=== PATIENT | female | born 1980 | race Caucasian/White ===

== ENCOUNTER 2020-02-23 14:38 | Emergency (ER) | payer OTHER ==
[2020-02-23 14:44] VITALS: RESP 18; TEMP 98.3
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
[2020-02-23] MEDS ORDERED: ACET/COD 300 MG/30 MG STARTER PACK 6 TAB BTL PO STA (16:45)
[2020-02-23] MEDS ORDERED: CEPHALEXIN 500MG STARTER PACK 4 CAP BTL PO STA (16:46)
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
[2020-02-23 16:52] VITALS: BP 134/68; PULSE 74
== END 2020-02-23 16:50 | disposition home or self-care (01) ==
LOC: EC 14:38
DX: S02.2XXA Fracture of nasal bones, initial encounter for closed fracture (principal); F17.200 Nicotine dependence, unspecified, uncomplicated; Z91.013 Allergy to seafood; W22.8XXA Striking against or struck by other objects, initial encounter
CPT/HCPCS: 70450; 70486; 99284

== ENCOUNTER 2020-05-28 16:01 | Emergency (ER) | payer OTHER ==
[2020-05-28 16:11] VITALS: BP 127/72; PULSE 71; RESP 18; TEMP 98.3
[2020-05-28] MEDS ORDERED: ACET/COD 300 MG/30 MG STARTER PACK 6 TAB BTL PO STA (16:20)
[2020-05-28] MEDS ORDERED: PENICILLIN VK 500MG STARTER 4 TAB BTL PO STA (16:20)
[2020-05-28] MEDS ORDERED: IBUPROFEN 600 MG TAB PO STA (16:21)
--- NOTE | 2020-05-28 16:22 | ED ---
General Adult HPI - General Chief complaint: Dental/Oral Stated complaint: Dental Pain Time Seen by Provider: 05/28/20 16:08 Source: patient, RN notes reviewed Mode of arrival: ambulatory Limitations: no limitations - History of Present Illness Initial comments: 40-year-old female presents to the emergency department for a chief complaint of dental pain. Patient reports she has had dental pain for the past 4 days. States she could not get into her dentist. Patient is concerned she may now have an abscess as she has a bump under her tooth. She denies trismus or neck stiffness. Denies fevers or chills.Patient has no other complaints at this time including shortness of breath, chest pain, abdominal pain, nausea or vomiting, headache, or visual changes. - Related Data Previous Rx's Medication Instructions Recorded Cephalexin [Keflex] 500 mg PO Q12HR 10 Days cap 02/23/20 Cephalexin [Keflex] 500 mg PO Q12HR 10 Days #20 cap 02/23/20 Penicillin V Potassium [Pen Vee K] 500 mg PO Q6H 10 Days #40 tablet 05/28/20 Allergies Allergy/AdvReac Type Severity Reaction Status Date / Time shellfish derived [Shellfish] Allergy Rash/Hives Verified 05/28/20 16:11 Review of Systems ROS Statement: Those systems with pertinent positive or pertinent negative responses have been documented in the HPI. ROS Other: All systems not noted in ROS Statement are negative. Past Medical History Past Medical History: No Reported History Additional Past Medical History / Comment(s): Tooth abscess. History of Any Multi-Drug Resistant Organisms: None Reported Past Surgical History: No Surgical Hx Reported Past Psychological History: No Psychological Hx Reported Smoking Status: Former smoker Past Alcohol Use History: None Reported, Occasional Past Drug Use History: Marijuana General Exam Limitations: no limitations General appearance: alert, in no apparent distress Head exam: Present: atraumatic, normocephalic, normal inspection Eye exam: Present: normal appearance, PERRL, EOMI. Absent: scleral icterus, conjunctival injection, periorbital swelling ENT exam: Present: mucous membranes moist, normal external ear exam. Absent: normal oropharynx (patient has a small area of edema noted below tooth 19 with tenderness to this area. No sublingual edema. No trismus.) Neck exam: Present: normal inspection, full ROM. Absent: tenderness, meningismus, lymphadenopathy Respiratory exam: Present: normal lung sounds bilaterally. Absent: respiratory distress, wheezes, rales, rhonchi, stridor Cardiovascular Exam: Present: regular rate, normal rhythm, normal heart sounds. Absent: systolic murmur, diastolic murmur, rubs, gallop, clicks Course Vital Signs 05/28/20 16:05 Temperature 98.3 F Pulse Rate 71 Respiratory 18 Rate Blood Pressure 127/72 O2 Sat by Pulse 100 Oximetry Medical Decision Making - Medical Decision Making I did attempt to incise and drain area of edema under the tooth however there is no purulent drainage. This is likely reactive inflammation. Patient was started on penicillin. Discussed she return to the emergency room for any worsening symptoms and otherwise follow-up with her doctor. Disposition Clinical Impression: Pain, dental Disposition: HOME SELF-CARE Condition: Good Instructions (If sedation given, give patient instructions): Dental Abscess (ED) Additional Instructions: please take Motrin for pain. If pain is severe take Tylenol [address] operate machinery while taking this. Take penicillin as directed. Prescription was also sent to the pharmacy.follow-up with your dentist as soon as possible. If you have any worsening symptoms return to the emergency room. Prescriptions: Penicillin V Potassium [Pen Vee K] 500 mg PO Q6H 10 Days #40 tablet Is patient prescribed a controlled substance at d/c from ED?: No Referrals: Kati Hair MD [REFERRING] - 1-2 days Time of Disposition: 16:21
== END 2020-05-28 16:53 | disposition home or self-care (01) ==
LOC: EC 16:01
DX: K08.89 Other specified disorders of teeth and supporting structures (principal); R60.0 Localized edema; Z91.013 Allergy to seafood; Z87.891 Personal history of nicotine dependence
CPT/HCPCS: 99282

== ENCOUNTER 2021-03-06 19:21 | Emergency (ER) | payer OTHER ==
[2021-03-06 19:52] VITALS: RESP 18; TEMP 98.5
--- NOTE | 2021-03-06 20:20 | ED ---
URI HPI - General Chief Complaint: Upper Respiratory Infection Stated Complaint: SOB,cough Time Seen by Provider: 03/06/21 20:03 Source: patient Mode of arrival: ambulatory Limitations: no limitations - History of Present Illness Initial Comments: Patient is a 40-year-old female, with history of mild asthma, presenting to the emergency Department with complaints of a cough that just started this morning. Patient states she just returned from [facility] yesterday. She states she woke up with chest congestion cough and body aches. She denies having any fevers but does have chills. She denies any nausea or vomiting, no diarrhea. She denies any chest pain or shortness of breath. She states her cough is nonproductive. She denies having that Covid vaccine. She states that she is having to travel for work tomorrow and wants to make sure she does not have Covid. She has no further complaints at this time. Her vital signs are stable upon arrival. - Related Data Previous Rx's Medication Instructions Recorded Cephalexin [Keflex] 500 mg PO Q12HR 10 Days cap 02/23/20 Cephalexin [Keflex] 500 mg PO Q12HR 10 Days #20 cap 02/23/20 Penicillin V Potassium [Pen Vee K] 500 mg PO Q6H 10 Days #40 tablet 05/28/20 Allergies Allergy/AdvReac Type Severity Reaction Status Date / Time shellfish derived [Shellfish] Allergy Rash/Hives Verified 03/06/21 19:48 Review of Systems ROS Statement: Those systems with pertinent positive or pertinent negative responses have been documented in the HPI. ROS Other: All systems not noted in ROS Statement are negative. Past Medical History Past Medical History: Asthma Additional Past Medical History / Comment(s): Tooth abscess. History of Any Multi-Drug Resistant Organisms: None Reported Past Surgical History: Section, Cholecystectomy, Orthopedic Surgery Past Psychological History: No Psychological Hx Reported Smoking Status: Former smoker Past Alcohol Use History: None Reported, Occasional Past Drug Use History: Marijuana General Exam - General Exam Comments Initial Comments: GENERAL: Patient is well-developed and well-nourished. Patient is nontoxic and in no acute distress. HEAD: Atraumatic, normocephalic. EYES: Pupils equal round and reactive to light, extraocular movements intact, sclera anicteric, conjunctiva are normal. Eyelids were unremarkable. ENT: TMs normal, nares patent, oropharynx clear without exudates. Moist mucous membranes. NECK: Normal range of motion, supple without lymphadenopathy or JVD. LUNGS: Unlabored respirations. Breath sounds clear to auscultation bilaterally and equal. No wheezes rales or rhonchi. HEART: Regular rate and rhythm without murmurs, rubs or gallops. ABDOMEN: Soft, nontender, normoactive bowel sounds. No guarding, no rebound. No masses appreciated. : Deferred MUSCULOSKELETAL: Normal extremities with adequate strength and normal range of motion, no pitting or edema. No clubbing or cyanosis. NEUROLOGICAL: Patient is alert and oriented x 3. Motor and sensory are also intact. Cranial nerves II through XII grossly intact. Symmetrical smile. Normal speech, normal gait. PSYCH: Normal mood, normal affect. SKIN: Warm, Dry, normal turgor, no rashes or lesions noted. Limitations: no limitations Course Vital Signs 03/06/21 03/06/21 03/06/21 19:49 20:18 20:52 Temperature 98.5 F Pulse Rate 71 80 Respiratory 18 18 18 Rate Blood Pressure 98/65 109/74 O2 Sat by Pulse 100 100 Oximetry Medical Decision Making - Medical Decision Making Patient is a 40-year-old female here with cough and congestion that started this morning. She just returned from [facility], no fevers, her vital signs are stable. Patient is traveling for work tomorrow wants to make sure she does not have Covid. Her exam is unremarkable, lungs are clear. Rapid Covid is negative, chest x-ray is clear. I discussed with patient that her symptoms also likely a mild upper respiratory infection. Recommended Tylenol Motrin, cough and cold medicine [id number]. She is stable for discharge and she is in agreement with this plan of care. Case discussed Dr. Hudson. - Lab Data Lab Results 03/06/21 Range/Units 20:13 Coronavirus (PCR) Not Detected (Not Detectd) Disposition Clinical Impression: Upper respiratory tract infection Disposition: HOME SELF-CARE Condition: Stable Instructions (If sedation given, give patient instructions): Upper Respiratory Infection (ED) Additional Instructions: Please return to the Emergency Department if symptoms worsen or any other concerns. Your Covid test is negative today. Take [id number] medications for your symptoms. Is patient prescribed a controlled substance at d/c from ED?: No Referrals: None,Stated [Primary Care Provider] - 1-2 days Time of Disposition: 21:19
--- NOTE | 2021-03-06 20:54 | XR ---
EXAMINATION TYPE: XR chest 2V DATE OF EXAM: 03/06/2021 COMPARISON: NONE HISTORY: Short of breath and cough TECHNIQUE: 2 view FINDINGS: Heart and mediastinum are normal. Lungs are clear. Diaphragm is normal. Bony thorax is inta ct IMPRESSION: Normal chest. Normal heart.
[2021-03-06 21:19] VITALS: BP 109/74; PULSE 80
== END 2021-03-06 21:29 | disposition home or self-care (01) ==
LOC: EC 19:21
DX: J06.9 Acute upper respiratory infection, unspecified (principal); J45.909 Unspecified asthma, uncomplicated; F12.90 Cannabis use, unspecified, uncomplicated; Z87.891 Personal history of nicotine dependence; Z90.49 Acquired absence of other specified parts of digestive tract
CPT/HCPCS: 71046; 87635; 99283

== ENCOUNTER 2021-04-16 20:49 | Emergency (ER) | payer OTHER ==
[2021-04-16] MEDS ORDERED: HYDROmorphone 1 MG/ML 1 ML SYRINGE IVP STA (21:07)
[2021-04-16] MEDS ORDERED: FAMOTIDINE 20 MG/2 ML VIAL IV STA (21:07)
[2021-04-16] MEDS ORDERED: ONDANSETRON 4 MG/2 ML VIAL IVP STA (21:07)
[2021-04-16] MEDS ORDERED: SODIUM CHLORIDE 0.9% 1,000 ML IV STA (21:07)
[2021-04-16 21:21] LABS: Anisocytosis Slight; Basophils # (A) 0.1 k/uL (0-0.2); Basophils % (A) 1 %; Eosinophils # (A) 0.1 k/uL (0-0.7); Eosinophils % (A) 2 %; HCT 33.4 % (34.0-46.0); HGB 10.7 gm/dL (11.4-16.0); Hypochromasia Slight; Lymphocytes # (A) 2.5 k/uL (1.0-4.8); Lymphocytes % (A) 45 %; MCH 23.3 pg (25.0-35.0); MCHC 32.1 g/dL (31.0-37.0); MCV 72.5 fL (80.0-100.0); Mean Platelet Volume 7.1; Microcytosis Moderate; Monocytes # (A) 0.5 k/uL (0-1.0); Monocytes % (A) 8 %; Neutrophils # (A) 2.3 k/uL (1.3-7.7); Neutrophils % (A) 41 %; Platelet Count 288 k/uL (150-450); RDW 17.6 % (11.5-15.5); WBC 5.7 k/uL (3.8-10.6)
[2021-04-16 21:30] LABS: ALT 17 U/L (4-34); AST 26 U/L (14-36); African American GFR (CKD) >90 (>60 ml/min/1.73 sqM); Albumin 4.5 g/dL (3.5-5.0); Alkaline Phosphatase 93 U/L (38-126); Anion Gap 12 mmol/L; Blood Urea Nitrogen 12 mg/dL (7-17); Calcium 9.4 mg/dL (8.4-10.2); Carbon Dioxide 23 mmol/L (22-30); Chloride 104 mmol/L (98-107); Glucose 111 mg/dL (74-99); Lipase 62 U/L (23-300); Non-African American GFR(CKD) >90 (>60 ml/min/1.73 sqM); Potassium 3.6 mmol/L (3.5-5.1); Sodium 139 mmol/L (137-145); Total Bilirubin 0.2 mg/dL (0.2-1.3); Total Protein 7.6 g/dL (6.3-8.2)
[2021-04-16] MEDS ORDERED: KETOROLAC 15 MG/ML 1 ML VIAL IVP STA (21:56)
[2021-04-16 22:13] LABS: Appearance,Urine Clear (Clear); Bilirubin,Urine Negative (Negative); Blood,Urine Negative (Negative); Color,Urine Yellow; Glucose,Urine (UA) Negative (Negative); Ketones,Urine Negative (Negative); Leukocyte Esterase,Urine Negative (Negative); Nitrite,Urine Negative (Negative); Protein,Urine Negative (Negative); Specific Gravity,Urine 1.014 (1.001-1.035); Urobilinogen,Urine <2.0 mg/dL (<2.0)
--- NOTE | 2021-04-16 23:00 | CT ---
EXAMINATION TYPE: CT abdomen pelvis w con DATE OF EXAM: 04/16/2021 COMPARISON: None HISTORY: Abdominal pain. CT DLP: 1990.8 mGycm Automated exposure control for dose reduction was used. CONTRAST: Performed with IV Contrast, patient injected with 100 mL of Isovue 300. Lung bases are clear. There is no pleural effusion. Heart size is normal. There is no pericardial eff usion. Liver spleen stomach pancreas appear intact. The bile ducts are nondilated. Gallbladder is absent. Th ere are clips from cholecystectomy. There is no adrenal mass. Kidneys show satisfactory contrast opacification. There is no hydronephrosi s. Ureters are not dilated. There is no retroperitoneal adenopathy. Appendix is posterior and appears normal. Bladder distends smoothly. There is no inguinal hernia. There is no free fluid in the pelvis. There a re clips from tubal ligation. There is 3 cm cyst on the left ovary. There is no free fluid in the pel vis. There is no mesenteric edema. There is no ascites or free air. There is no bowel obstruction del ayed images show normal renal excretion. Lumbar vertebra have normal spacing and alignment. Posterior elements are intact. There is no sean eleonora fracture. Bony pelvis is intact. The hip joints are intact. IMPRESSION: Negative CT scan of the abdomen pelvis.
[2021-04-16 23:25] VITALS: BP 104/64; PULSE 58; RESP 18; TEMP 98.2
[2021-04-16] MEDS ORDERED: ACET/COD 300 MG/30 MG STARTER PACK 6 TAB BTL PO STA (23:29)
--- NOTE | 2021-04-16 23:30 | ED ---
Abdominal Pain HPI - General Chief Complaint: Abdominal Pain Stated Complaint: Abd Pain Time Seen by Provider: 04/16/21 20:55 Source: patient Mode of arrival: wheelchair Limitations: no limitations - History of Present Illness Initial Comments: 41 year-old female patient presents to the emergency department for evaluation of upper abdominal pain radiating through to her back. Patient states it started suddenly just prior to arrival. States that she did eat just prior to onset of pain. She denies any fever, chills, nausea, or vomiting. Denies any constipation or diarrhea. States she had similar pain in the past with a kidney stone. Has had cholecystectomy in the past. Denies any other abdominal surgeries. Patient denies any recent rash, cough, shortness of breath, chest pain, numbness, tingling, dizziness, weakness, hematuria, dysuria, urinary urgency, urinary frequency, headache, visual changes, or any other complaints. - Related Data Home Medications Medication Instructions Recorded Confirmed No Known Home Medications 04/16/21 04/16/21 Allergies Allergy/AdvReac Type Severity Reaction Status Date / Time shellfish derived [Shellfish] Allergy Rash/Hives Verified 04/16/21 21:55 Review of Systems ROS Statement: Those systems with pertinent positive or pertinent negative responses have been documented in the HPI. ROS Other: All systems not noted in ROS Statement are negative. Past Medical History Past Medical History: Asthma Additional Past Medical History / Comment(s): Tooth abscess. History of Any Multi-Drug Resistant Organisms: None Reported Past Surgical History: Section, Cholecystectomy, Orthopedic Surgery, Tubal Ligation Past Psychological History: No Psychological Hx Reported Smoking Status: Former smoker Past Alcohol Use History: Occasional Past Drug Use History: Marijuana General Exam Limitations: no limitations General appearance: alert, in no apparent distress, other (This is a well d eveloped, well nourished adult female patient in no acute distress. V/S upon presentations temp 98.7, pulse 92, respirations 22, BP 141/79, pulse ox 100%. ) ENT exam: Present: normal exam, normal oropharynx, mucous membranes moist Respiratory exam: Present: normal lung sounds bilaterally. Absent: respiratory distress, wheezes, rales, rhonchi, stridor Cardiovascular Exam: Present: regular rate, normal rhythm, normal heart sounds. Absent: systolic murmur, diastolic murmur, rubs, gallop, clicks GI/Abdominal exam: Present: soft, tenderness (midepigastric), normal bowel sounds. Absent: distended, guarding, rebound, rigid Neurological exam: Present: alert, oriented X3, CN II-XII intact Psychiatric exam: Present: normal affect, normal mood Skin exam: Present: warm, dry, intact, normal color. Absent: rash Course Vital Signs 04/16/21 04/16/21 20:50 23:22 Temperature 98.7 F 98.2 F Pulse Rate 92 58 L Respiratory 22 18 Rate Blood Pressure 141/79 104/64 O2 Sat by Pulse 100 96 Oximetry Medical Decision Making - Medical Decision Making 41 year-old female patient presented to the emergency department for upper abdominal pain. Physical exam shows mild midepigastric tenderness. No vomiting. No discharge. Labs reviewed and revealed a elevated lactic at 2.9. Normal white blood cell count. Urinalysis is negative. CT abdomen and pelvis was obtained and showed no acute abdomen abnormalities. I did discuss signs and results with the patient. She will be discharged with Tylenol with codeine sta rter pack. Instructed about the primary care physician discuss referral to GI specialist. Return parameters were discussed in detail. She verbalizes understanding and agrees with this plan. My attending is Dr. Hewitt. - Lab Data Result diagrams: 04/16/21 21:10 04/16/21 21:10 Lab Results 04/16/21 04/16/21 04/16/21 Range/Units 21:10 21:10 21:10 WBC 5.7 (3.8-10.6) k/uL RBC 4.60 (3.80-5.40) m/uL Hgb 10.7 L (11.4-16.0) gm/dL Hct 33.4 L (34.0-46.0) % MCV 72.5 L (80.0-100.0) fL MCH 23.3 L (25.0-35.0) pg MCHC 32.1 (31.0-37.0) g/dL RDW 17.6 H (11.5-15.5) % Plt Count 288 (150-450) k/uL MPV 7.1 Neutrophils % 41 % Lymphocytes % 45 % Monocytes % 8 % Eosinophils % 2 % Basophils % 1 % Neutrophils # 2.3 (1.3-7.7) k/uL Lymphocytes # 2.5 (1.0-4.8) k/uL Monocytes # 0.5 (0-1.0) k/uL Eosinophils # 0.1 (0-0.7) k/uL Basophils # 0.1 (0-0.2) k/uL Hypochromasia Slight Anisocytosis Slight Microcytosis Moderate Sodium 139 (137-145) mmol/L Potassium 3.6 (3.5-5.1) mmol/L Chloride 104 (98-107) mmol/L Carbon Dioxide 23 (22-30) mmol/L Anion Gap 12 mmol/L BUN 12 (7-17) mg/dL Creatinine 0.69 (0.52-1.04) mg/dL Est GFR (CKD-EPI)AfAm >90 (>60 ml/min/1.73 sqM) Est GFR (CKD-EPI)NonAf >90 (>60 ml/min/1.73 sqM) Glucose 111 H (74-99) mg/dL Lactic Ac Sepsis Rflx Plasma Lactic Acid Abdiel (0.7-2.0) mmol/L Calcium 9.4 (8.4-10.2) mg/dL Total Bilirubin 0.2 (0.2-1.3) mg/dL AST 26 (14-36) U/L ALT 17 (4-34) U/L Alkaline Phosphatase 93 (38-126) U/L Total Protein 7.6 (6.3-8.2) g/dL Albumin 4.5 (3.5-5.0) g/dL Lipase 62 (23-300) U/L Urine Color Yellow Urine Appearance Clear (Clear) Urine pH 7.0 (5.0-8.0) Ur Specific [place] 1.014 (1.001-1.035) Urine Protein Negative (Negative) Urine Glucose (UA) Negative (Negative) Urine Ketones Negative (Negative) Urine Blood Negative (Negative) Urine Nitrite Negative (Negative) Urine Bilirubin Negative (Negative) Urine Urobilinogen <2.0 (<2.0) mg/dL Ur Leukocyte Esterase Negative (Negative) 04/16/21 04/16/21 Range/Units 21:10 22:02 WBC (3.8-10.6) k/uL RBC (3.80-5.40) m/uL Hgb (11.4-16.0) gm/dL Hct (34.0-46.0) % MCV (80.0-100.0) fL MCH (25.0-35.0) pg MCHC (31.0-37.0) g/dL RDW (11.5-15.5) % Plt Count (150-450) k/uL MPV Neutrophils % % Lymphocytes % % Monocytes % % Eosinophils % % Basophils % % Neutrophils # (1.3-7.7) k/uL Lymphocytes # (1.0-4.8) k/uL Monocytes # (0-1.0) k/uL Eosinophils # (0-0.7) k/uL Basophils # (0-0.2) k/uL Hypochromasia Anisocytosis Microcytosis Sodium (137-145) mmol/L Potassium (3.5-5.1) mmol/L Chloride (98-107) mmol/L Carbon Dioxide (22-30) mmol/L Anion Gap mmol/L BUN (7-17) mg/dL Creatinine (0.52-1.04) mg/dL Est GFR (CKD-EPI)AfAm (>60 ml/min/1.73 sqM) Est GFR (CKD-EPI)NonAf (>60 ml/min/1.73 sqM) Glucose (74-99) mg/dL Lactic Ac Sepsis Rflx Y Plasma Lactic Acid Abdiel 2.9 H* (0.7-2.0) mmol/L Calcium (8.4-10.2) mg/dL Total Bilirubin (0.2-1.3) mg/dL AST (14-36) U/L ALT (4-34) U/L Alkaline Phosphatase (38-126) U/L Total Protein (6.3-8.2) g/dL Albumin (3.5-5.0) g/dL Lipase (23-300) U/L Urine Color Urine Appearance (Clear) Urine pH (5.0-8.0) Ur Specific [place] (1.001-1.035) Urine Protein (Negative) Urine Glucose (UA) (Negative) Urine Ketones (Negative) Urine Blood (Negative) Urine Nitrite (Negative) Urine Bilirubin (Negative) Urine Urobilinogen (<2.0) mg/dL Ur Leukocyte Esterase (Negative) - Radiology Data Radiology results: report reviewed, image reviewed CT abdomen and pelvis with contrast was obtained. Impression shows negative CT scanning abdomen and pelvis. Disposition Clinical Impression: Abdominal pain Disposition: HOME SELF-CARE Condition: Good Instructions (If sedation given, give patient instructions): Abdominal Pain (ED) Additional Instructions: Take medication as directed. Follow-up with her primary care physician for rech darlene in 1-2 days. Discuss referral to gastroenterology. Return to the emergency department for any new, worsening, or concerning symptoms. Is patient prescribed a controlled substance at d/c from ED?: No Referrals: None,Stated [Primary Care Provider] - 1-2 days Time of Disposition: 23:29
== END 2021-04-16 23:42 | disposition home or self-care (01) ==
LOC: EC 20:49
DX: R10.13 Epigastric pain (principal); J45.909 Unspecified asthma, uncomplicated; F12.90 Cannabis use, unspecified, uncomplicated; Z90.49 Acquired absence of other specified parts of digestive tract; Z98.51 Tubal ligation status; Z87.891 Personal history of nicotine dependence
CPT/HCPCS: 36415; 80053; 83605; 83690; 85025; 81003; 74177; 99284; 96374; 96375 ×3; 96361; J2405; J1170; J1885; Q9967